=== PATIENT | female | born 1955 | race Caucasian/White ===

== ENCOUNTER 2020-12-05 09:21 | Inpatient (IN) | payer MEDICARE ==
[2020-12-05 17:50] VITALS: BMI 32.5
[2020-12-05] MEDS ORDERED: Acetaminophen 325 MG TAB PO PRN (17:51)
[2020-12-05] MEDS ORDERED: Acetaminophen 650 MG Suppository PR PRN (17:51)
[2020-12-05] MEDS: Sodium Chloride 0.9% 1,000 ML IV SCH (18:10)
[2020-12-05] MEDS ORDERED: Senokot 8.6 MG TAB PO PRN (19:12)
[2020-12-05] MEDS ORDERED: Potassium Chloride 20 MEQ TAB PO SCH (19:15)
[2020-12-05 20:27] LABS: Lactic Acid 1.5 mmol/L (0.5-2.2)
[2020-12-05] MEDS: Famotidine/PF 20 mg/2ml Vial SLOW IVP SCH (20:30)
[2020-12-05 20:31] LABS: Albumin 3.4 g/dL (3.4-4.8); Anion Gap 18 mmol/L (10-20); BUN (Urea Nitrogen) 41 mg/dL (9.8-20.1); BUN/Creatinine Ratio 36.61; Bilirubin, Direct 1.2 mg/dL (0.1-0.3); Calc. Creatinine Clearance 65 mL/min (70-130); Calcium 8.7 mg/dL (7.8-10.44); Carbon Dioxide 20 mmol/L (23-31); Chloride 93 mmol/L (98-107); Glucose 68 mg/dL (80-115); Lipase 8 U/L (8-78); Magnesium 1.6 mg/dL (1.6-2.6); Potassium 3.4 mmol/L (3.5-5.1); Sodium 128 mmol/L (136-145)
[2020-12-06 06:11] LABS: Hemoglobin 10.8 g/dL (12.0-16.0); Mean Corpuscular Hemoglobin 30.4 pg (27.0-31.0); Mean Corpuscular Volume 89.5 fL (78.0-98.0); Platelet Count 131 thou/uL (130-400); RBC Distribution Width 11.8 % (11.5-14.5); Red Blood Cell (RBC) Count 3.55 mill/uL (4.20-5.40); White Blood Cell (WBC) Count 8.6 thou/uL (4.8-10.8)
[2020-12-06 06:25] LABS: ALT (SGPT) 225 U/L (8-55); AST (SGOT) 39 U/L (5-34); Alkaline Phosphatase 179 U/L (40-110); Anion Gap 20 mmol/L (10-20); BUN (Urea Nitrogen) 40 mg/dL (9.8-20.1); Calc. Creatinine Clearance 48 mL/min (70-130); Calcium 8.4 mg/dL (7.8-10.44); Carbon Dioxide 16 mmol/L (23-31); Chloride 96 mmol/L (98-107); Globulin 2.7 g/dL (2.4-3.5); Glucose 69 mg/dL (80-115); Lipase 6 U/L (8-78); Magnesium 1.9 mg/dL (1.6-2.6); Potassium 3.6 mmol/L (3.5-5.1); Protein, Total 5.7 g/dL (5.8-8.1); Sodium 128 mmol/L (136-145)
[2020-12-06 06:54] LABS: Band 26 % (5-11); Lymphocytes 1 % (21-51); MDiff Complete? YES; Monocytes 6 % (0-10); Myelocyte 1 % (0-0); Neutrophil 66 % (42-75); Platelet Morphology Comment Appears Adequate
[2020-12-06] MEDS: Famotidine/PF 20 mg/2ml Vial SLOW IVP SCH (08:44)
[2020-12-06] MEDS: cefTRIAXone\\ROCEPHIN 1 GM in Sodium Chloride 0.9% 100 ML IVPB SCH (08:44)
[2020-12-06] MEDS: Sodium Chloride 0.9% 1,000 ML IV SCH (09:11)
[2020-12-06] MEDS ORDERED: Ondansetron PF 4 MG/2 ML Vial ONE (10:11)
[2020-12-06] MEDS ORDERED: Dexamethasone 20 MG/5 ML VIAL ONE (10:11)
[2020-12-06] MEDS ORDERED: Lidocaine 1% PF 5 ML VIAL ONE (10:11)
[2020-12-06] MEDS ORDERED: PROPOFOL 200 MG/20 ML VIAL ONE (10:11)
[2020-12-06] MEDS ORDERED: Levofloxacin 500 mg/D5W 100 ml Premix Bag ONE (13:31)
[2020-12-06] MEDS ORDERED: Iothalamate Meglumine 60% 50 ML VIAL FS ONE (13:41)
[2020-12-06] MEDS ORDERED: Fentanyl 100 MCG/2 ML VIAL ONE ×2 (13:46→15:01)
[2020-12-06] MEDS ORDERED: Ondansetron HCl/PF 4 MG/2 ML Vial IVP PRN (15:00)
[2020-12-06] MEDS ORDERED: Tamsulosin HCl 0.4 MG CAP ONE (15:11)
[2020-12-06] MEDS ORDERED: Oxybutynin 5 MG TAB ONE (15:11)
[2020-12-06] MEDS: Oxybutynin 5 MG TAB PO SCH (16:28)
[2020-12-06] MEDS: Tamsulosin HCl 0.4 MG CAP PO SCH (16:28)
[2020-12-06] MEDS: Phenazopyridine HCl 100 MG TAB PO SCH (18:08)
[2020-12-06] MEDS: Gabapentin 100 MG CAP PO SCH (20:57)
[2020-12-06] MEDS: Atorvastatin Calcium 20 MG TAB PO SCH (20:58)
[2020-12-06] MEDS: Metoprolol Tartrate 50 MG TAB PO SCH (20:59)
[2020-12-07] MEDS ORDERED: hydrALAZINE 20 MG/ML VIAL SLOW IVP PRN (01:13)
[2020-12-07] MEDS: hydrALAZINE 20 MG/ML VIAL SLOW IVP PRN ×3 (02:19→18:38)
[2020-12-07] MEDS: Sodium Chloride 0.9% 1,000 ML IV SCH ×2 (02:25→16:31)
[2020-12-07] MEDS: cefTRIAXone\\ROCEPHIN 1 GM in Sodium Chloride 0.9% 100 ML IVPB SCH (09:58)
[2020-12-07] MEDS: Phenazopyridine HCl 100 MG TAB PO SCH ×3 (09:59→17:29)
[2020-12-07] MEDS: Metoprolol Tartrate 50 MG TAB PO SCH ×2 (10:00→20:48)
[2020-12-07] MEDS: OXcarbazepine 300 MG TAB PO SCH (10:00)
[2020-12-07] MEDS: Cholecalciferol 1,000 UNITS (25 MCG) TAB PO SCH (10:00)
[2020-12-07] MEDS: Gabapentin 100 MG CAP PO SCH ×2 (10:02→20:48)
[2020-12-07] MEDS: Famotidine/PF 20 mg/2ml Vial SLOW IVP SCH (10:03)
[2020-12-07] MEDS: Amlodipine 5 MG TAB PO SCH (10:03)
[2020-12-07 10:19] LABS: Anion Gap 18 mmol/L (10-20); BUN (Urea Nitrogen) 29 mg/dL (9.8-20.1); Calc. Creatinine Clearance 72 mL/min (70-130); Calcium 8.7 mg/dL (7.8-10.44); Carbon Dioxide 18 mmol/L (23-31); Chloride 100 mmol/L (98-107); Glucose 95 mg/dL (80-115); Potassium 4.2 mmol/L (3.5-5.1); Sodium 132 mmol/L (136-145)
[2020-12-07 12:23] LABS: Band 10 % (5-11); Lymphocytes 4 % (21-51); MDiff Complete? YES; Mean Corpuscular HGB CONC 34.1 g/dL (32.0-36.0); Mean Corpuscular Hemoglobin 30.5 pg (27.0-31.0); Mean Corpuscular Volume 89.3 fL (78.0-98.0); Mean Platelet Volume 7.4 fL (7.4-10.4); Monocytes 6 % (0-10); Neutrophil 80 % (42-75); Platelet Count 163 thou/uL (130-400); Platelet Morphology Comment Appears Adequate; RBC Morphology Normal; Red Blood Cell (RBC) Count 3.93 mill/uL (4.20-5.40); Vacuoles SLIGHT
[2020-12-07] MEDS: Oxybutynin 5 MG TAB PO SCH (16:27)
[2020-12-07] MEDS: Tamsulosin HCl 0.4 MG CAP PO SCH (16:27)
[2020-12-07] MEDS: Atorvastatin Calcium 20 MG TAB PO SCH (20:48)
[2020-12-08] MEDS: Metoprolol Tartrate 50 MG TAB PO SCH (08:25)
[2020-12-08] MEDS: Amlodipine 5 MG TAB PO SCH (08:25)
[2020-12-08] MEDS: cefTRIAXone\\ROCEPHIN 1 GM in Sodium Chloride 0.9% 100 ML IVPB SCH (08:25)
[2020-12-08] MEDS: OXcarbazepine 300 MG TAB PO SCH (08:25)
[2020-12-08] MEDS: Cholecalciferol 1,000 UNITS (25 MCG) TAB PO SCH (08:26)
[2020-12-08] MEDS: Famotidine/PF 20 mg/2ml Vial SLOW IVP SCH (08:26)
[2020-12-08] MEDS: Gabapentin 100 MG CAP PO SCH (08:26)
[2020-12-08] MEDS: Sodium Chloride 0.9% 1,000 ML IV SCH (08:29)
[2020-12-08] MEDS: Phenazopyridine HCl 100 MG TAB PO SCH ×2 (08:34→13:06)
[2020-12-08 10:09] LABS: Band 3 % (5-11); Hemoglobin 11.5 g/dL (12.0-16.0); Lymphocytes 9 % (21-51); MDiff Complete? YES; Mean Corpuscular HGB CONC 33.9 g/dL (32.0-36.0); Mean Corpuscular Hemoglobin 30.5 pg (27.0-31.0); Mean Corpuscular Volume 90.1 fL (78.0-98.0); Mean Platelet Volume 7.5 fL (7.4-10.4); Metamyelocyte 1 % (0-0); Monocytes 9 % (0-10); Myelocyte 1 % (0-0); Neutrophil 77 % (42-75); Platelet Count 183 thou/uL (130-400); Platelet Morphology Comment Appears Adequate; RBC Distribution Width 11.9 % (11.5-14.5); RBC Morphology Normal; Red Blood Cell (RBC) Count 3.78 mill/uL (4.20-5.40); White Blood Cell (WBC) Count 8.8 thou/uL (4.8-10.8)
[2020-12-08 14:23] VITALS: BP 161/90; TEMP 97.6
== END 2020-12-08 15:23 | disposition home or self-care (01) | DRG 660 ==
LOC: SURG A 09:21 → T4-B 12-06 15:47
PROVIDERS: ADMIT Internal Medicine; ATTEND Internal Medicine
PROC: 0T768DZ Dilation of Right Ureter with Intraluminal Device, Via Natural or Artificial Opening Endoscopic (ICD-10-PCS; principal; 2020-12-06)
PROC: BT1D1ZZ Fluoroscopy of Right Kidney, Ureter and Bladder using Low Osmolar Contrast (ICD-10-PCS; 2020-12-06)
DX: N13.6 Pyonephrosis (principal); E87.1 Hypo-osmolality and hyponatremia; G90.50 Complex regional pain syndrome I, unspecified; N17.9 Acute kidney failure, unspecified; I10 Essential (primary) hypertension; R79.89 Other specified abnormal findings of blood chemistry; F31.9 Bipolar disorder, unspecified; B96.20 Unspecified Escherichia coli [E. coli] as the cause of diseases classified elsewhere; N20.0 Calculus of kidney; K59.00 Constipation, unspecified; R19.00 Intra-abdominal and pelvic swelling, mass and lump, unspecified site; E78.5 Hyperlipidemia, unspecified; Z88.6 Allergy status to analgesic agent
CPT/HCPCS: 36415; 74176; 74420; 76705; 80048; 80053; 80074; 80143; 81003; 81015; 82248; 82436; 82550; 83605; 83690; 83735; 83930; 83935; 84133; 84145; 84300; 84443; 84484; 85025; 87040; 87077; 87086; 87186; 87635; 88112; 93005; 93010; 93306; 93970; 80307; J0360; J0696; J1100; J1650; J1956; J2405; J2704; J3010; J3490; S0028; U0003; U0005

== ENCOUNTER 2020-12-22 11:06 | Outpatient (CLI) | payer MEDICARE ==
[2020-12-22 14:32] LABS: Hemoglobin 11.3 g/dL (12.0-15.5); Mean Corpuscular HGB CONC 32.9 g/dL (32.0-36.0); Mean Corpuscular Hemoglobin 29.4 pg (27.0-33.0); Mean Corpuscular Volume 89.1 fl (81.6-98.3); Mean Platelet Volume 12.5 fl (7.4-10.4); Platelet Count 186 10x3/uL (150-450); RBC Distribution Width 13.3 % (11.5-14.5); Red Blood Cell (RBC) Count 3.85 10x6/uL (3.90-5.03); White Blood Cell (WBC) Count 4.4 10x3/uL (3.5-10.5)
[2020-12-22 14:34] LABS: Anion Gap 11 mmol/L (10-20); BUN (Urea Nitrogen) 9 mg/dL (9.8-20.1); Calc. Creatinine Clearance 0 mL/min (70-130); Calcium 8.8 mg/dL (7.8-10.44); Carbon Dioxide 31 mmol/L (23-31); Chloride 94 mmol/L (98-107); Glucose 72 mg/dL (80-115); Potassium 4.4 mmol/L (3.5-5.1); Sodium 132 mmol/L (136-145)
[2020-12-22 14:43] LABS: Bilirubin Neg (Negative); Blood, Urine 250 (Negative); Clarity Clear (Clear); Glucose, Urine (Dipstick) Normal (Negative); Ketone, Urine Negative (Negative); Leukocyte 500 (Negative); Nitrite Negative (Negative); Protein, Urine (Dipstick) 100 mg/dl (Neg-Trace); Urobilinogen Normal mg/dL (Less than 2)
[2020-12-22 15:13] LABS: Bacteria/HPF Rare-Few HPF (None Seen); RBC/HPF 0-3 HPF (0-3); Squamous Epithelial 0-3 HPF (0-3); WBC/HPF 0-3 HPF (0-3)
[2020-12-23 04:28] LABS: SARS-CoV-2 PCR by NAA Not Detected (NotDetected)
== END 2020-12-22 11:07 | disposition home or self-care (01) ==
LOC: LABBT 11:06
PROVIDERS: ATTEND Urology
DX: Z01.818 Encounter for other preprocedural examination (principal); N13.5 Crossing vessel and stricture of ureter without hydronephrosis; Z20.822 Contact with and (suspected) exposure to COVID-19
CPT/HCPCS: 80048; 81001; 85027; 87086; 93005; U0003; U0005; 87635; 93010

== ENCOUNTER 2020-12-27 07:51 | Day surgery (SDC) | payer MEDICARE ==
[2020-12-26 11:40] VITALS: BMI 31.8
[2020-12-27] MEDS ORDERED: Levofloxacin 500 mg/D5W 100 ml Premix Bag ONE (08:40)
[2020-12-27] MEDS ORDERED: Iothalamate Meglumine 60% 50 ML VIAL FS ONE (10:12)
[2020-12-27] MEDS ORDERED: Fentanyl 100 MCG/2 ML VIAL ONE (10:16)
[2020-12-27] MEDS ORDERED: Ondansetron PF 4 MG/2 ML Vial ONE (10:35)
[2020-12-27] MEDS ORDERED: PROPOFOL 200 MG/20 ML VIAL ONE (10:35)
[2020-12-27] MEDS ORDERED: Phenazopyridine HCl 100 MG TAB ONE (11:33)
[2020-12-27] MEDS ORDERED: Oxybutynin 5 MG TAB ONE (11:34)
[2020-12-27] MEDS ORDERED: HYDROcodone/Acetaminophen 5/325 mg Tablet ONE ×2 (11:57→13:44)
[2021-01-02 18:13] LABS: CA Oxalate Dihydrate 70 % (.); CA Oxalate Monohydrate 30 % (.); Color White (.); Stone Weight 42 mg (.)
== END 2020-12-27 14:52 | disposition home or self-care (01) ==
LOC: SDC 07:51
PROVIDERS: ATTEND Urology
PROC: 0TC38ZZ Extirpation of Matter from Right Kidney Pelvis, Via Natural or Artificial Opening Endoscopic (ICD-10-PCS; principal; 2020-12-27)
PROC: 0T768DZ Dilation of Right Ureter with Intraluminal Device, Via Natural or Artificial Opening Endoscopic (ICD-10-PCS; 2020-12-27)
DX: N13.5 Crossing vessel and stricture of ureter without hydronephrosis (principal); N20.0 Calculus of kidney; Z79.899 Other long term (current) drug therapy; Z88.5 Allergy status to narcotic agent; Z91.040 Latex allergy status
CPT/HCPCS: 74420; 82365; 88300; J1956; J2405; J2704; J3010; Q9961

== ENCOUNTER 2021-05-12 21:53 | Inpatient (IN) | payer MEDICARE ==
[2021-05-13 00:02] LABS: #Eosinphils 0.1 thou/uL (0.0-0.7); #Monocytes 0.5 thou/uL (0.11-0.59); #Neutrophils 3.7 thou/uL (1.40-6.50); %Basophils 0.9 % (0.0-1.0); %Eosinophils 1.1 % (0.0-10.0); %Lymphocytes 19.8 % (21.0-51.0); %Monocytes 8.8 % (0.0-10.0); %Neutrophils 69.4 % (42.0-75.0); Hemoglobin 11.7 g/dL (12.0-16.0); Mean Corpuscular HGB CONC 35.6 g/dL (32.0-36.0); Mean Corpuscular Hemoglobin 31.3 pg (27.0-31.0); Mean Corpuscular Volume 87.9 fL (78.0-98.0); Mean Platelet Volume 6.9 fL (7.4-10.4); Platelet Count 230 thou/uL (130-400); RBC Distribution Width 11.7 % (11.5-14.5); Red Blood Cell (RBC) Count 3.73 mill/uL (4.20-5.40); White Blood Cell (WBC) Count 5.3 thou/uL (4.8-10.8)
[2021-05-13 00:16] LABS: Bilirubin Negative (Negative); Blood, Urine Small (Negative); Glucose, Urine (Dipstick) Negative (Negative); Ketone, Urine 40 mg/dL (Negative); Leukocyte Small (Negative); Nitrite Negative (Negative); Protein, Urine (Dipstick) 100 mg/dL (Neg-Trace); Specific Gravity, Urine 1.015 (1.005-1.030)
[2021-05-13 00:22] LABS: Clarity Clear (Clear)
[2021-05-13 00:36] LABS: Other Microscopic Description Less than 2 mL rec'd; RBC/HPF 0-3 HPF (0-3); WBC/HPF 0-3 HPF (0-3)
[2021-05-13 00:49] LABS: SARS-CoV-2 NAA Rapid Test Not Detected (NotDetected)
[2021-05-13 01:03] LABS: ALT (SGPT) 12 U/L (8-55); AST (SGOT) 19 U/L (5-34); Albumin 3.8 g/dL (3.4-4.8); Alkaline Phosphatase 149 U/L (40-110); Anion Gap 11 mmol/L (10-20); BUN (Urea Nitrogen) 10 mg/dL (9.8-20.1); Bilirubin, Total 0.6 mg/dL (0.2-1.2); Calc. Creatinine Clearance 0 mL/min (70-130); Calcium 9.1 mg/dL (7.8-10.44); Carbon Dioxide 28 mmol/L (23-31); Chloride 98 mmol/L (98-107); Globulin 2.7 g/dL (2.4-3.5); Glucose 78 mg/dL (80-115); Potassium 3.3 mmol/L (3.5-5.1); Protein, Total 6.5 g/dL (5.8-8.1); Sodium 134 mmol/L (136-145)
[2021-05-13] MEDS ORDERED: Morphine 2 MG/ML VIAL ONE (01:43)
[2021-05-13] MEDS ORDERED: Melatonin 3 MG TAB PO SCH (02:00)
[2021-05-13] MEDS ORDERED: Amitriptyline HCl 100 MG TAB PO SCH (02:00)
[2021-05-13] MEDS ORDERED: Acetaminophen 325 MG TAB PO PRN ×2 (03:45→04:53)
[2021-05-13] MEDS ORDERED: Sodium Chloride 0.9% 1,000 ML IV SCH (03:45)
[2021-05-13] MEDS ORDERED: Ondansetron PF 4 MG/2 ML Vial IVP PRN ×2 (03:45→04:53)
[2021-05-13] MEDS ORDERED: Ondansetron ODT 4 MG TAB SL PRN (03:45)
[2021-05-13 04:15] VITALS: BMI 28.2
[2021-05-13] MEDS ORDERED: Senokot S 8.6-50 MG TAB PO PRN (04:53)
[2021-05-13] MEDS ORDERED: Potassium Chloride 20 MEQ TAB PO SCH ×2 (05:00→13:45)
[2021-05-13] MEDS: Morphine 4 MG/ML VIAL SLOW IVP PRN ×2 (05:20→18:00)
[2021-05-13] MEDS: traMADol HCl 50 MG TAB PO PRN ×3 (05:55→21:27)
[2021-05-13 06:33] LABS: #Basophils 0.1 thou/uL (0.0-0.2); #Eosinphils 0.1 thou/uL (0.0-0.7); #Lymphocytes 1.1 thou/uL (1.20-3.40); #Monocytes 0.6 thou/uL (0.11-0.59); #Neutrophils 4.9 thou/uL (1.40-6.50); %Eosinophils 1.1 % (0.0-10.0); %Lymphocytes 15.9 % (21.0-51.0); %Monocytes 9.6 % (0.0-10.0); %Neutrophils 72.3 % (42.0-75.0); Hemoglobin 12.6 g/dL (12.0-16.0); Mean Corpuscular HGB CONC 35.4 g/dL (32.0-36.0); Mean Corpuscular Hemoglobin 31.4 pg (27.0-31.0); Mean Corpuscular Volume 88.6 fL (78.0-98.0); Mean Platelet Volume 7.1 fL (7.4-10.4); Platelet Count 263 thou/uL (130-400); RBC Distribution Width 11.8 % (11.5-14.5); Red Blood Cell (RBC) Count 4.02 mill/uL (4.20-5.40); White Blood Cell (WBC) Count 6.7 thou/uL (4.8-10.8)
[2021-05-13 06:56] LABS: Anion Gap 12 mmol/L (10-20); BUN (Urea Nitrogen) 10 mg/dL (9.8-20.1); Calc. Creatinine Clearance 91 mL/min (70-130); Calcium 9.5 mg/dL (7.8-10.44); Carbon Dioxide 28 mmol/L (23-31); Chloride 98 mmol/L (98-107); Glucose 73 mg/dL (80-115); Magnesium 1.8 mg/dL (1.6-2.6); Potassium 3.2 mmol/L (3.5-5.1); Sodium 135 mmol/L (136-145)
[2021-05-13] MEDS ORDERED: hydrALAZINE 20 MG/ML VIAL SLOW IVP PRN (07:02)
[2021-05-13] MEDS: Metoprolol Tartrate 50 MG TAB PO SCH ×2 (08:23→21:20)
[2021-05-13] MEDS: Atorvastatin Calcium 20 MG TAB PO SCH (08:23)
[2021-05-13] MEDS: Amlodipine 5 MG TAB PO SCH (08:23)
[2021-05-13 11:44] LABS: Prothrombin Time 13.6 sec (12.0-14.7)
[2021-05-13 11:45] LABS: PTT 38.7 sec (22.9-36.1)
[2021-05-13] MEDS: OXcarbazepine 300 MG TAB PO SCH ×2 (14:50→21:26)
[2021-05-13] MEDS ORDERED: OXcarbazepine 600 MG TAB PO SCH (15:00)
[2021-05-13] MEDS: Amitriptyline HCl 100 MG TAB PO SCH (21:20)
[2021-05-14 05:38] LABS: #Basophils 0.1 thou/uL (0.0-0.2); #Eosinphils 0.1 thou/uL (0.0-0.7); #Lymphocytes 1.6 thou/uL (1.20-3.40); #Monocytes 0.7 thou/uL (0.11-0.59); #Neutrophils 4.9 thou/uL (1.40-6.50); %Basophils 0.9 % (0.0-1.0); %Eosinophils 1.9 % (0.0-10.0); %Lymphocytes 21.7 % (21.0-51.0); %Monocytes 8.9 % (0.0-10.0); %Neutrophils 66.6 % (42.0-75.0); Hemoglobin 11.9 g/dL (12.0-16.0); Mean Corpuscular HGB CONC 34.7 g/dL (32.0-36.0); Mean Corpuscular Hemoglobin 30.9 pg (27.0-31.0); Mean Platelet Volume 6.9 fL (7.4-10.4); Platelet Count 271 thou/uL (130-400); RBC Distribution Width 11.7 % (11.5-14.5); Red Blood Cell (RBC) Count 3.85 mill/uL (4.20-5.40); White Blood Cell (WBC) Count 7.3 thou/uL (4.8-10.8)
[2021-05-14 06:02] LABS: Anion Gap 12 mmol/L (10-20); BUN (Urea Nitrogen) 13 mg/dL (9.8-20.1); Calc. Creatinine Clearance 90 mL/min (70-130); Calcium 9.3 mg/dL (7.8-10.44); Carbon Dioxide 24 mmol/L (23-31); Chloride 98 mmol/L (98-107); Glucose 79 mg/dL (80-115); Magnesium 1.8 mg/dL (1.6-2.6); Sodium 130 mmol/L (136-145)
[2021-05-14] MEDS: Morphine 4 MG/ML VIAL SLOW IVP PRN (06:25)
[2021-05-14] MEDS: Metoprolol Tartrate 50 MG TAB PO SCH ×2 (08:00→19:58)
[2021-05-14] MEDS: Atorvastatin Calcium 20 MG TAB PO SCH (08:05)
[2021-05-14] MEDS: OXcarbazepine 300 MG TAB PO SCH ×3 (08:05→21:21)
[2021-05-14] MEDS: Amlodipine 5 MG TAB PO SCH (08:05)
[2021-05-14] MEDS: Cholecalciferol 1,000 UNITS (25 MCG) TAB PO SCH (08:05)
[2021-05-14] MEDS ORDERED: Fentanyl 250 MCG/5 ML VIAL ONE (10:33)
[2021-05-14] MEDS ORDERED: Albumin 5% 500 ML ONE (10:33)
[2021-05-14] MEDS ORDERED: Ketamine 50 MG/ML (10ML VIAL) ONE (10:43)
[2021-05-14] MEDS ORDERED: Dexmedetomidine 200 MCG/2 ML VIAL ONE (10:43)
[2021-05-14] MEDS ORDERED: Bacitracin Zinc Ointment 30 gm TUBE ONE (10:44)
[2021-05-14] MEDS ORDERED: Thrombin 5000 UNITS/5 ML VIAL ONE (10:44)
[2021-05-14] MEDS ORDERED: PHENYLEPHRINE-NS 100 MCG/ML 10 ML SYRINGE ONE (10:50)
[2021-05-14] MEDS ORDERED: Lidocaine 1% PF 5 ML VIAL ONE (10:50)
[2021-05-14] MEDS ORDERED: Glycopyrrolate 0.2 MG/ML 5 ML SYRINGE ONE (10:50)
[2021-05-14] MEDS ORDERED: Vecuronium 10 MG VIAL ONE (10:50)
[2021-05-14] MEDS ORDERED: PROPOFOL 200 MG/20 ML VIAL ONE (10:50)
[2021-05-14] MEDS ORDERED: Ondansetron PF 4 MG/2 ML Vial ONE (10:50)
[2021-05-14] MEDS ORDERED: Dexamethasone 20 MG/5 ML VIAL ONE (10:50)
[2021-05-14] MEDS ORDERED: Rocuronium Bromide 10 MG/ML (10ML VIAL) ONE (10:50)
[2021-05-14] MEDS ORDERED: ePHEDrine 50 MG/ML VIAL ONE (10:50)
[2021-05-14] MEDS ORDERED: Fentanyl 100 MCG/2 ML VIAL ONE ×2 (16:23→16:52)
[2021-05-14] MEDS ORDERED: HYDROmorphone 0.5 MG/0.5 ML SYRINGE ONE (17:26)
[2021-05-14] MEDS: CEFAZOLIN 2 GM in Premix Bag 1 BAG IVPB SCH (18:08)
[2021-05-14] MEDS: Morphine 2 MG/ML VIAL SLOW IVP PRN ×2 (18:13→22:43)
[2021-05-14] MEDS: Amitriptyline HCl 100 MG TAB PO SCH (19:58)
[2021-05-14] MEDS: HYDROcodone/Acetaminophen 7.5/325 mg Tablet PO PRN (21:27)
[2021-05-15] MEDS: CEFAZOLIN 2 GM in Premix Bag 1 BAG IVPB SCH ×3 (01:42→17:31)
[2021-05-15] MEDS: Morphine 2 MG/ML VIAL SLOW IVP PRN (05:28)
[2021-05-15 05:29] LABS: #Lymphocytes 1.2 thou/uL (1.20-3.40); #Monocytes 1.5 thou/uL (0.11-0.59); #Neutrophils 7.7 thou/uL (1.40-6.50); %Basophils 0.1 % (0.0-1.0); %Eosinophils 0.1 % (0.0-10.0); %Lymphocytes 11.4 % (21.0-51.0); %Monocytes 14.6 % (0.0-10.0); %Neutrophils 73.8 % (42.0-75.0); Mean Corpuscular HGB CONC 35.9 g/dL (32.0-36.0); Mean Corpuscular Hemoglobin 31.8 pg (27.0-31.0); Mean Corpuscular Volume 88.8 fL (78.0-98.0); Platelet Count 283 thou/uL (130-400); RBC Distribution Width 11.8 % (11.5-14.5); Red Blood Cell (RBC) Count 3.46 mill/uL (4.20-5.40); White Blood Cell (WBC) Count 10.5 thou/uL (4.8-10.8)
[2021-05-15 05:59] LABS: Anion Gap 12 mmol/L (10-20); BUN (Urea Nitrogen) 16 mg/dL (9.8-20.1); Calc. Creatinine Clearance 77 mL/min (70-130); Calcium 8.5 mg/dL (7.8-10.44); Carbon Dioxide 26 mmol/L (23-31); Chloride 96 mmol/L (98-107); Glucose 116 mg/dL (80-115); Magnesium 1.6 mg/dL (1.6-2.6); Sodium 130 mmol/L (136-145)
[2021-05-15] MEDS ORDERED: Diazepam 5 MG TAB PO PRN (06:58)
[2021-05-15] MEDS ORDERED: Magnesium 2 GM/50 ML 2 GM in Premix Bag 1 BAG IVPB SCH (07:30)
[2021-05-15] MEDS ORDERED: Diazepam 5 MG TAB PO SCH (08:30)
[2021-05-15] MEDS ORDERED: Ketorolac Tromethamine 30 MG/ML VIAL IVP SCH ×2 (09:15→16:00)
[2021-05-15] MEDS: Metoprolol Tartrate 50 MG TAB PO SCH (09:32)
[2021-05-15] MEDS: OXcarbazepine 300 MG TAB PO SCH ×2 (09:33→14:28)
[2021-05-15] MEDS: Cholecalciferol 1,000 UNITS (25 MCG) TAB PO SCH (09:33)
[2021-05-15] MEDS: Atorvastatin Calcium 20 MG TAB PO SCH (09:34)
[2021-05-15] MEDS: Amlodipine 5 MG TAB PO SCH (09:34)
[2021-05-15 14:23] LABS: EliA RAS New Method **** NEW METHOD ****; Rheumatoid Factor IgM Antibody 2.4 IU/mL (<3.5 Negative)
[2021-05-15] MEDS: HYDROcodone/Acetaminophen 7.5/325 mg Tablet PO PRN (14:27)
[2021-05-15 15:24] VITALS: BP 121/63; TEMP 99.3
[2021-05-18 13:12] LABS: EliA RAS New Method **** NEW METHOD ****; Rheumatoid Factor IgA Antibody 3.5 IU/mL (<14 Negative)
== END 2021-05-15 19:15 | DRG 453 ==
LOC: ERS 21:53 → SJJU 05-13 01:05 → OBSVTOIN 05-15 11:19
PROVIDERS: ADMIT Internal Medicine; ATTEND Family Medicine
PROC: 0RG20A0 Fusion of 2 or more Cervical Vertebral Joints with Interbody Fusion Device, Anterior Approach, Anterior Column, Open Approach (ICD-10-PCS; principal; 2021-05-14)
PROC: 0RG2071 Fusion of 2 or more Cervical Vertebral Joints with Autologous Tissue Substitute, Posterior Approach, Posterior Column, Open Approach (ICD-10-PCS; 2021-05-14)
PROC: 0RB30ZZ Excision of Cervical Vertebral Disc, Open Approach (ICD-10-PCS; 2021-05-14)
PROC: 01N10ZZ Release Cervical Nerve, Open Approach (ICD-10-PCS; 2021-05-14)
PROC: 00NW0ZZ Release Cervical Spinal Cord, Open Approach (ICD-10-PCS; 2021-05-14)
DX: M48.02 Spinal stenosis, cervical region (principal); Z20.822 Contact with and (suspected) exposure to COVID-19; G95.19 Other vascular myelopathies; G90.50 Complex regional pain syndrome I, unspecified; E87.1 Hypo-osmolality and hyponatremia; M47.12 Other spondylosis with myelopathy, cervical region; M47.22 Other spondylosis with radiculopathy, cervical region; I10 Essential (primary) hypertension; E78.5 Hyperlipidemia, unspecified; E87.6 Hypokalemia; M06.9 Rheumatoid arthritis, unspecified; Z88.5 Allergy status to narcotic agent; Z91.040 Latex allergy status; Z79.899 Other long term (current) drug therapy; Z98.890 Other specified postprocedural states; Z83.3 Family history of diabetes mellitus; Z95.828 Presence of other vascular implants and grafts; Z87.891 Personal history of nicotine dependence
CPT/HCPCS: 0240U; 36415; 71045; 72125; 76000; 80048; 81003; 81015; 83520; 83735; 84134; 85025; 85610; 85730; 93005; 93970; 96374; 96375; 96376; C1713; C1768; C1776; G0378; J0690; J1100; J1170; J1885; J2270; J2405; J2704; J3010; J3370; J3475; J3490; P9045

== ENCOUNTER 2021-05-20 17:37 | Inpatient (IN) | payer MEDICARE ==
[2021-05-20 18:52] LABS: ALT (SGPT) 115 U/L (8-55); AST (SGOT) 23 U/L (5-34); Albumin 3.9 g/dL (3.4-4.8); Alkaline Phosphatase 237 U/L (40-110); Anion Gap 15 mmol/L (10-20); BUN (Urea Nitrogen) 9 mg/dL (9.8-20.1); Bilirubin, Total 0.7 mg/dL (0.2-1.2); Calc. Creatinine Clearance 0 mL/min (70-130); Calcium 9.4 mg/dL (7.8-10.44); Carbon Dioxide 24 mmol/L (23-31); Chloride 88 mmol/L (98-107); Globulin 3.3 g/dL (2.4-3.5); Glucose 96 mg/dL (80-115); Potassium 3.5 mmol/L (3.5-5.1); Protein, Total 7.2 g/dL (5.8-8.1); Sodium 123 mmol/L (136-145)
[2021-05-20 18:55] LABS: #Eosinphils 0.1 thou/uL (0.0-0.7); #Monocytes 0.8 thou/uL (0.11-0.59); #Neutrophils 7.2 thou/uL (1.40-6.50); %Basophils 0.3 % (0.0-1.0); %Eosinophils 1.6 % (0.0-10.0); %Lymphocytes 10.3 % (21.0-51.0); %Monocytes 9.2 % (0.0-10.0); %Neutrophils 78.7 % (42.0-75.0); Hemoglobin 13.2 g/dL (12.0-16.0); Mean Corpuscular HGB CONC 36.7 g/dL (32.0-36.0); Mean Corpuscular Volume 87.4 fL (78.0-98.0); Mean Platelet Volume 6.9 fL (7.4-10.4); Platelet Count 313 thou/uL (130-400); Red Blood Cell (RBC) Count 4.12 mill/uL (4.20-5.40); White Blood Cell (WBC) Count 9.2 thou/uL (4.8-10.8)
[2021-05-20 19:25] LABS: Bacteria/HPF 4+ HPF (None Seen); Bilirubin Negative (Negative); Clarity Turbid (Clear); Glucose, Urine (Dipstick) Normal (Negative); Ketone, Urine 100 mg/dL (Negative); Leukocyte 500 Leu/uL (Negative); Nitrite 2+ (Negative); Protein, Urine (Dipstick) 30 mg/dL (Neg-Trace); Specific Gravity, Urine 1.019 (1.002-1.036); Squamous Epithelial None Seen HPF (0-3); Urobilinogen Normal mg/dL (Less than 2); WBC/HPF Greater than 50 HPF (0-3)
[2021-05-20 19:27] LABS: Blood, Urine 1+ (Negative)
[2021-05-20] MEDS ORDERED: cefTRIAXone\\ROCEPHIN 1 GM VIAL ONE (19:41)
[2021-05-20] MEDS ORDERED: Vancomycin 1 GM/200 ML BAG ONE (20:36)
[2021-05-20] MEDS ORDERED: Acetaminophen 325 MG TAB PO PRN (21:50)
[2021-05-20] MEDS ORDERED: Senokot S 8.6-50 MG TAB PO PRN (21:50)
[2021-05-20] MEDS: Sodium Chloride 0.9% 1,000 ML IV SCH (22:40)
[2021-05-20] MEDS ORDERED: traMADol HCl 50 MG TAB PO PRN (23:39)
[2021-05-21] MEDS: Ondansetron PF 4 MG/2 ML Vial IVP PRN ×2 (02:07→17:28)
[2021-05-21 05:45] LABS: Anion Gap 14 mmol/L (10-20); BUN (Urea Nitrogen) 7 mg/dL (9.8-20.1); Calc. Creatinine Clearance 113 mL/min (70-130); Calcium 8.8 mg/dL (7.8-10.44); Carbon Dioxide 22 mmol/L (23-31); Chloride 93 mmol/L (98-107); Glucose 99 mg/dL (80-115); Sodium 126 mmol/L (136-145)
[2021-05-21 05:49] LABS: Band 3 % (5-11); Hemoglobin 11.5 g/dL (12.0-16.0); Lymphocytes 12 % (21-51); MDiff Complete? YES; Mean Corpuscular Hemoglobin 31.7 pg (27.0-31.0); Mean Corpuscular Volume 87.8 fL (78.0-98.0); Mean Platelet Volume 6.9 fL (7.4-10.4); Monocytes 5 % (0-10); Neutrophil 80 % (42-75); Platelet Count 271 thou/uL (130-400); Platelet Morphology Comment Appears Adequate; RBC Distribution Width 11.9 % (11.5-14.5); RBC Morphology Normal; Red Blood Cell (RBC) Count 3.64 mill/uL (4.20-5.40); White Blood Cell (WBC) Count 7.2 thou/uL (4.8-10.8)
[2021-05-21] MEDS ORDERED: COLLAGEN HYDR PO SCH (09:00)
[2021-05-21] MEDS ORDERED: [UNRECOGNIZED DRUG - OTHER] PO SCH (09:00)
[2021-05-21] MEDS ORDERED: ASCORBIC ACID PO SCH (09:00)
[2021-05-21] MEDS: Enoxaparin Sodium 40 MG/0.4 ML SYRINGE SC SCH (09:11)
[2021-05-21] MEDS: Amlodipine 5 MG TAB PO SCH (09:11)
[2021-05-21] MEDS: Famotidine 20 MG TAB PO SCH ×2 (09:11→20:04)
[2021-05-21] MEDS: Atorvastatin Calcium 20 MG TAB PO SCH (09:11)
[2021-05-21] MEDS: Metoprolol Tartrate 50 MG TAB PO SCH ×2 (09:11→20:04)
[2021-05-21] MEDS: OXcarbazepine 300 MG TAB PO SCH ×3 (09:12→20:59)
[2021-05-21] MEDS: Buprenorphine 8mg/Naloxone 2mg per 1 FILM SL SCH ×2 (09:12→20:57)
[2021-05-21] MEDS ORDERED: Potassium Chloride 20 MEQ TAB PO SCH (09:30)
[2021-05-21] MEDS: Sodium Chloride 0.9% 1,000 ML IV SCH (09:30)
[2021-05-21 19:15] LABS: SARS-CoV-2 PCR by NAA Not Detected (NotDetected)
[2021-05-21] MEDS: cefTRIAXone\\ROCEPHIN 1 GM in Sodium Chloride 0.9% 100 ML IVPB SCH (20:03)
[2021-05-21] MEDS: Amitriptyline HCl 100 MG TAB PO SCH (20:04)
[2021-05-21] MEDS ORDERED: Naloxone HCl 0.4 mg/ml Vial ONE ×2 (22:38→22:54)
[2021-05-21 23:00] LABS: Actual Bicarbonate (HCO3a) 24.4 mEq/L (22-28); Base Excess (BEa) -2.8 mEq/L (-2.0 to +3.0); CO2 Tension 53.3 mmHg (35.0-45.0); Carboxyhemoglobin (COHb) 0.4 gm% (0.0-3.0); Hemoglobin (Hb) 11.6 g/dL (12.0-16.0); O2 Tension (PaO2), arterial 384.3 mmHg (> 80.0); Potassium - ABG Lab 3.93 mmol/L (3.70-5.30); pH, Arterial 7.28 (7.35-7.45)
[2021-05-21 23:03] LABS: Puncture Site RRA
[2021-05-21 23:03] LABS: #Basophils 0.1 thou/uL (0.0-0.2); #Eosinphils 0.3 thou/uL (0.0-0.7); #Lymphocytes 1.2 thou/uL (1.20-3.40); #Neutrophils 6.3 thou/uL (1.40-6.50); %Basophils 0.7 % (0.0-1.0); %Eosinophils 2.9 % (0.0-10.0); %Lymphocytes 13.2 % (21.0-51.0); %Monocytes 11.1 % (0.0-10.0); Hemoglobin 10.9 g/dL (12.0-16.0); Mean Corpuscular HGB CONC 34.7 g/dL (32.0-36.0); Mean Corpuscular Volume 89.3 fL (78.0-98.0); Mean Platelet Volume 6.6 fL (7.4-10.4); Platelet Count 284 thou/uL (130-400); RBC Distribution Width 12.2 % (11.5-14.5); Red Blood Cell (RBC) Count 3.51 mill/uL (4.20-5.40); White Blood Cell (WBC) Count 8.8 thou/uL (4.8-10.8)
[2021-05-21 23:09] LABS: ALV-art Gradient 262.075 mmHg (0-20)
[2021-05-21 23:35] LABS: Lactic Acid 0.7 mmol/L (0.5-2.2)
[2021-05-21 23:41] LABS: ALT (SGPT) 66 U/L (8-55); AST (SGOT) 20 U/L (5-34); Albumin 3.2 g/dL (3.4-4.8); Alkaline Phosphatase 180 U/L (40-110); Anion Gap 10 mmol/L (10-20); BUN (Urea Nitrogen) 9 mg/dL (9.8-20.1); Bilirubin, Total 0.4 mg/dL (0.2-1.2); Calc. Creatinine Clearance 110 mL/min (70-130); Calcium 8.2 mg/dL (7.8-10.44); Carbon Dioxide 25 mmol/L (23-31); Chloride 97 mmol/L (98-107); Globulin 2.2 g/dL (2.4-3.5); Glucose 103 mg/dL (80-115); Protein, Total 5.4 g/dL (5.8-8.1); Sodium 128 mmol/L (136-145)
[2021-05-21 23:43] LABS: Troponin I 0.012 ng/mL (< 0.028)
[2021-05-22 01:22] LABS: Actual Bicarbonate (HCO3a) 24.2 mEq/L (22-28); Base Excess (BEa) -2.7 mEq/L (-2.0 to +3.0); Calcium, Ionized (arterial) 1.17 mmol/L (1.12-1.30); Carboxyhemoglobin (COHb) 0.1 gm% (0.0-3.0); Hemoglobin (Hb) 12.3 g/dL (12.0-16.0); O2 Tension (PaO2), arterial 111.7 mmHg (> 80.0); Potassium - ABG Lab 4.69 mmol/L (3.70-5.30)
[2021-05-22] MEDS ORDERED: Electrolyte Replacement Protocol 1 EACH IVPB ONE (02:02)
[2021-05-22] MEDS ORDERED: Norepinephrine 8 MG/0.9% NS 250 ML IVPB PRN (02:02)
[2021-05-22] MEDS ORDERED: Ventilator Sedation Protocol 1 EACH FS SCH (02:15)
[2021-05-22] MEDS ORDERED: Morphine 2 MG/ML VIAL SLOW IVP PRN (02:30)
[2021-05-22] MEDS ORDERED: Propofol BOLUS 1,000 MG/100 ML VIAL IV PRN (02:30)
[2021-05-22] MEDS ORDERED: DISCONTINUE PREVIOUS NARCOTIC PAIN MEDICATIONS AND BENZODIAZEPINES FS SCH (02:30)
[2021-05-22] MEDS ORDERED: Lorazepam 2 MG/ML VIAL SLOW IVP PRN (02:30)
[2021-05-22] MEDS ORDERED: Propofol 1,000 MG/100 ML VIAL IV PRN (02:30)
[2021-05-22] MEDS ORDERED: Fentanyl CADD 100 ML IV SCH (02:30)
[2021-05-22] MEDS ORDERED: Fentanyl BOLUS 250 ML IVPB PRN (02:30)
[2021-05-22] MEDS ORDERED: Electrolyte Replacement Protocol FS PRN (02:45)
[2021-05-22 02:51] LABS: Actual Bicarbonate (HCO3a) 23.9 mEq/L (22-28); Base Excess (BEa) -0.8 mEq/L (-2.0 to +3.0); CO2 Tension 39.6 mmHg (35.0-45.0); Calcium, Ionized (arterial) 1.13 mmol/L (1.12-1.30); Carboxyhemoglobin (COHb) 0.3 gm% (0.0-3.0); Hemoglobin (Hb) 11.5 g/dL (12.0-16.0); Potassium - ABG Lab 4.22 mmol/L (3.70-5.30)
[2021-05-22 02:57] LABS: O2 Tension (PaO2), arterial 512.8 mmHg (> 80.0)
[2021-05-22 02:58] LABS: Puncture Site LINE
[2021-05-22 03:45] LABS: #Eosinphils 0.1 thou/uL (0.0-0.7); #Lymphocytes 0.4 thou/uL (1.20-3.40); #Monocytes 0.6 thou/uL (0.11-0.59); %Basophils 0.5 % (0.0-1.0); %Eosinophils 0.7 % (0.0-10.0); %Lymphocytes 4.1 % (21.0-51.0); %Monocytes 6.7 % (0.0-10.0); Hemoglobin 10.7 g/dL (12.0-16.0); Mean Corpuscular HGB CONC 35.5 g/dL (32.0-36.0); Mean Corpuscular Hemoglobin 31.9 pg (27.0-31.0); Mean Corpuscular Volume 89.7 fL (78.0-98.0); Mean Platelet Volume 7.1 fL (7.4-10.4); Platelet Count 269 thou/uL (130-400); Red Blood Cell (RBC) Count 3.37 mill/uL (4.20-5.40); White Blood Cell (WBC) Count 9.1 thou/uL (4.8-10.8)
[2021-05-22 04:08] LABS: Anion Gap 10 mmol/L (10-20); BUN (Urea Nitrogen) 10 mg/dL (9.8-20.1); Calc. Creatinine Clearance 105 mL/min (70-130); Calcium 8.6 mg/dL (7.8-10.44); Carbon Dioxide 24 mmol/L (23-31); Chloride 96 mmol/L (98-107); Glucose 122 mg/dL (80-115); Magnesium 1.6 mg/dL (1.6-2.6); Potassium 4.2 mmol/L (3.5-5.1); Sodium 126 mmol/L (136-145)
[2021-05-22] MEDS: Sodium Chloride 0.9% 1,000 ML IV SCH (04:11)
[2021-05-22] MEDS ORDERED: Magnesium 2 GM/50 ML 2 GM in Premix Bag 1 BAG IVPB SCH ×2 (06:15→22:00)
[2021-05-22] MEDS: Famotidine 20 MG TAB PO SCH ×2 (10:14→20:05)
[2021-05-22] MEDS: Atorvastatin Calcium 20 MG TAB PO SCH (10:14)
[2021-05-22] MEDS: Enoxaparin Sodium 40 MG/0.4 ML SYRINGE SC SCH (10:14)
[2021-05-22] MEDS: Amlodipine 5 MG TAB PO SCH (10:15)
[2021-05-22] MEDS: OXcarbazepine 300 MG TAB PO SCH ×3 (10:15→20:09)
[2021-05-22] MEDS: Metoprolol Tartrate 50 MG TAB PO SCH ×2 (10:15→20:05)
[2021-05-22] MEDS ORDERED: Iopamidol-370 76% 500 ML 1 ML ONE (15:00)
[2021-05-22] MEDS ORDERED: Cyclobenzaprine 10 MG TAB PO PRN (19:40)
[2021-05-22] MEDS: cefTRIAXone\\ROCEPHIN 1 GM in Sodium Chloride 0.9% 100 ML IVPB SCH (20:05)
[2021-05-22] MEDS: Amitriptyline HCl 100 MG TAB PO SCH (20:05)
[2021-05-22] MEDS: Sodium Chloride 1 GM TAB PO SCH ×3 (20:06→20:26)
[2021-05-22 20:36] LABS: Anion Gap 9 mmol/L (10-20); BUN (Urea Nitrogen) 12 mg/dL (9.8-20.1); Calc. Creatinine Clearance 94 mL/min (70-130); Calcium 8.5 mg/dL (7.8-10.44); Carbon Dioxide 26 mmol/L (23-31); Chloride 96 mmol/L (98-107); Glucose 136 mg/dL (80-115); Magnesium 1.9 mg/dL (1.6-2.6); Potassium 3.7 mmol/L (3.5-5.1); Sodium 127 mmol/L (136-145)
[2021-05-22] MEDS ORDERED: Potassium Chloride 20 MEQ TAB PO SCH (20:45)
[2021-05-23 03:54] LABS: #Eosinphils 0.2 thou/uL (0.0-0.7); Hemoglobin 10.1 g/dL (12.0-16.0); RBC Distribution Width 12.2 % (11.5-14.5); White Blood Cell (WBC) Count 7.3 thou/uL (4.8-10.8)
[2021-05-23 04:08] LABS: #Lymphocytes 0.9 thou/uL (1.20-3.40); #Monocytes 0.7 thou/uL (0.11-0.59); #Neutrophils 5.5 thou/uL (1.40-6.50); %Basophils 0.5 % (0.0-1.0); %Eosinophils 2.6 % (0.0-10.0); %Lymphocytes 12.5 % (21.0-51.0); %Monocytes 9.8 % (0.0-10.0); %Neutrophils 74.7 % (42.0-75.0); Mean Corpuscular HGB CONC 34.8 g/dL (32.0-36.0); Mean Corpuscular Hemoglobin 31.3 pg (27.0-31.0); Mean Platelet Volume 7.1 fL (7.4-10.4); Platelet Count 263 thou/uL (130-400); Red Blood Cell (RBC) Count 3.22 mill/uL (4.20-5.40)
[2021-05-23 08:06] LABS: Albumin 3.1 g/dL (3.4-4.8); Anion Gap 9 mmol/L (10-20); BUN (Urea Nitrogen) 10 mg/dL (9.8-20.1); BUN/Creatinine Ratio 15.87; Calc. Creatinine Clearance 113 mL/min (70-130); Calcium 8.6 mg/dL (7.8-10.44); Carbon Dioxide 27 mmol/L (23-31); Chloride 98 mmol/L (98-107); Glucose 85 mg/dL (80-115); Magnesium 2.1 mg/dL (1.6-2.6); Phosphorus 3.2 mg/dL (2.3-4.7); Potassium 4.6 mmol/L (3.5-5.1); Sodium 129 mmol/L (136-145)
[2021-05-23] MEDS: Famotidine 20 MG TAB PO SCH ×2 (10:43→20:27)
[2021-05-23] MEDS: Amlodipine 5 MG TAB PO SCH ×2 (10:43→11:11)
[2021-05-23] MEDS: Enoxaparin Sodium 40 MG/0.4 ML SYRINGE SC SCH (11:10)
[2021-05-23] MEDS: Atorvastatin Calcium 20 MG TAB PO SCH (11:11)
[2021-05-23] MEDS: Sodium Chloride 1 GM TAB PO SCH ×3 (11:11→20:27)
[2021-05-23] MEDS: Metoprolol Tartrate 50 MG TAB PO SCH ×2 (11:11→20:27)
[2021-05-23] MEDS: OXcarbazepine 300 MG TAB PO SCH ×3 (11:12→20:28)
[2021-05-23] MEDS ORDERED: Buprenorphine 8mg/Naloxone 2mg per 1 FILM PO SCH (13:30)
[2021-05-23] MEDS: cefTRIAXone\\ROCEPHIN 1 GM in Sodium Chloride 0.9% 100 ML IVPB SCH (20:27)
[2021-05-24] MEDS: Amitriptyline HCl 100 MG TAB PO SCH (00:24)
[2021-05-24 05:00] LABS: #Eosinphils 0.2 thou/uL (0.0-0.7); #Lymphocytes 0.9 thou/uL (1.20-3.40); #Monocytes 0.6 thou/uL (0.11-0.59); #Neutrophils 3.7 thou/uL (1.40-6.50); %Basophils 0.5 % (0.0-1.0); %Eosinophils 3.6 % (0.0-10.0); %Lymphocytes 16.3 % (21.0-51.0); %Neutrophils 68.5 % (42.0-75.0); Hemoglobin 9.3 g/dL (12.0-16.0); Mean Corpuscular HGB CONC 33.9 g/dL (32.0-36.0); Mean Corpuscular Hemoglobin 30.7 pg (27.0-31.0); Mean Corpuscular Volume 90.4 fL (78.0-98.0); Mean Platelet Volume 6.6 fL (7.4-10.4); Platelet Count 252 thou/uL (130-400); RBC Distribution Width 12.2 % (11.5-14.5); Red Blood Cell (RBC) Count 3.03 mill/uL (4.20-5.40); White Blood Cell (WBC) Count 5.5 thou/uL (4.8-10.8)
[2021-05-24 05:21] LABS: Phosphorus 3.2 mg/dL (2.3-4.7)
[2021-05-24 05:25] LABS: ALT (SGPT) 40 U/L (8-55); AST (SGOT) 14 U/L (5-34); Albumin 3.1 g/dL (3.4-4.8); Alkaline Phosphatase 173 U/L (40-110); Anion Gap 9 mmol/L (10-20); BUN (Urea Nitrogen) 9 mg/dL (9.8-20.1); BUN/Creatinine Ratio 14.75; Bilirubin, Total 0.3 mg/dL (0.2-1.2); Calc. Creatinine Clearance 117 mL/min (70-130); Calcium 8.5 mg/dL (7.8-10.44); Carbon Dioxide 29 mmol/L (23-31); Chloride 96 mmol/L (98-107); Globulin 2.5 g/dL (2.4-3.5); Glucose 86 mg/dL (80-115); Magnesium 1.7 mg/dL (1.6-2.6); Phosphorus 3.3 mg/dL (2.3-4.7); Protein, Total 5.6 g/dL (5.8-8.1); Sodium 130 mmol/L (136-145)
[2021-05-24] MEDS ORDERED: Magnesium 2 GM/50 ML 2 GM in Premix Bag 1 BAG IVPB SCH (06:30)
[2021-05-24] MEDS: Atorvastatin Calcium 20 MG TAB PO SCH (09:21)
[2021-05-24] MEDS: OXcarbazepine 300 MG TAB PO SCH ×3 (09:21→20:36)
[2021-05-24] MEDS: Famotidine 20 MG TAB PO SCH ×2 (09:21→20:35)
[2021-05-24] MEDS: Sodium Chloride 1 GM TAB PO SCH ×3 (09:21→20:34)
[2021-05-24] MEDS: Enoxaparin Sodium 40 MG/0.4 ML SYRINGE SC SCH (09:21)
[2021-05-24] MEDS: Metoprolol Tartrate 50 MG TAB PO SCH ×2 (09:22→20:35)
[2021-05-24] MEDS: Amlodipine 5 MG TAB PO SCH (09:22)
[2021-05-24] MEDS ORDERED: Buprenorphine 8mg/Naloxone 2mg per 1 FILM PO SCH (12:00)
[2021-05-24] MEDS: Buprenorphine 8mg/Naloxone 2mg per 1 FILM PO SCH ×2 (16:36→20:36)
[2021-05-24] MEDS ORDERED: Amlodipine 5 MG TAB PO SCH (18:30)
[2021-05-24 19:30] VITALS: TEMP 98.2
[2021-05-24] MEDS: cefTRIAXone\\ROCEPHIN 1 GM in Sodium Chloride 0.9% 100 ML IVPB SCH (20:34)
[2021-05-25 04:42] LABS: Albumin 3.2 g/dL (3.4-4.8); Anion Gap 10 mmol/L (10-20); BUN (Urea Nitrogen) 8 mg/dL (9.8-20.1); Calc. Creatinine Clearance 103 mL/min (70-130); Calcium 8.8 mg/dL (7.8-10.44); Carbon Dioxide 32 mmol/L (23-31); Chloride 93 mmol/L (98-107); Glucose 96 mg/dL (80-115); Phosphorus 3.3 mg/dL (2.3-4.7); Potassium 3.7 mmol/L (3.5-5.1); Sodium 131 mmol/L (136-145)
[2021-05-25 07:46] VITALS: BP 147/73
[2021-05-25] MEDS: Metoprolol Tartrate 50 MG TAB PO SCH (09:08)
[2021-05-25] MEDS: Atorvastatin Calcium 20 MG TAB PO SCH (09:08)
[2021-05-25] MEDS: Sodium Chloride 1 GM TAB PO SCH ×2 (09:09→17:28)
[2021-05-25] MEDS: Enoxaparin Sodium 40 MG/0.4 ML SYRINGE SC SCH (09:09)
[2021-05-25] MEDS: Amlodipine 5 MG TAB PO SCH (09:09)
[2021-05-25] MEDS: Famotidine 20 MG TAB PO SCH (09:09)
[2021-05-25] MEDS: OXcarbazepine 300 MG TAB PO SCH ×2 (09:39→17:27)
[2021-05-25] MEDS ORDERED: Amlodipine 5 MG TAB PO SCH (10:00)
[2021-05-25] MEDS ORDERED: Potassium Chloride 20 MEQ TAB PO SCH (10:15)
[2021-05-26] MEDS ORDERED: Amlodipine 10 MG TAB PO SCH (09:00)
[2021-05-26] MEDS ORDERED: Amlodipine 5 MG TAB PO SCH (09:00)
[2021-05-26] MEDS ORDERED: Potassium Chloride 20 MEQ TAB PO SCH (09:00)
== END 2021-05-25 19:00 | DRG 643 ==
LOC: ERS 17:37 → SURG B 20:20 → CCU 05-22 02:20 → ONC 05-23 20:12
PROVIDERS: ADMIT Internal Medicine; ATTEND Family Medicine
PROC: 5A1935Z Respiratory Ventilation, Less than 24 Consecutive Hours (ICD-10-PCS; principal; 2021-05-22)
PROC: 0BH17EZ Insertion of Endotracheal Airway into Trachea, Via Natural or Artificial Opening (ICD-10-PCS; 2021-05-22)
DX: E22.2 Syndrome of inappropriate secretion of antidiuretic hormone (principal); G92 Toxic encephalopathy; J96.01 Acute respiratory failure with hypoxia; N39.0 Urinary tract infection, site not specified; G90.50 Complex regional pain syndrome I, unspecified; Z20.822 Contact with and (suspected) exposure to COVID-19; E78.5 Hyperlipidemia, unspecified; F31.9 Bipolar disorder, unspecified; I10 Essential (primary) hypertension; M47.812 Spondylosis without myelopathy or radiculopathy, cervical region; G89.4 Chronic pain syndrome; T50.7X5A Adverse effect of analeptics and opioid receptor antagonists, initial encounter; T40.425A Adverse effect of tramadol, initial encounter; E87.6 Hypokalemia; E83.42 Hypomagnesemia; R56.9 Unspecified convulsions; Z87.891 Personal history of nicotine dependence; Z78.1 Physical restraint status; Z98.890 Other specified postprocedural states; Z88.5 Allergy status to narcotic agent; Z88.8 Allergy status to other drugs, medicaments and biological substances; Z88.4 Allergy status to anesthetic agent; Z91.040 Latex allergy status; Z79.899 Other long term (current) drug therapy; Z98.1 Arthrodesis status; B96.20 Unspecified Escherichia coli [E. coli] as the cause of diseases classified elsewhere; B95.2 Enterococcus as the cause of diseases classified elsewhere
CPT/HCPCS: 36415; 36416; 36600; 70450; 70491; 70551; 71045; 80048; 80053; 80069; 81003; 81015; 82805; 83605; 83735; 83880; 83930; 83935; 84100; 84300; 84443; 84484; 85007; 85025; 85027; 87040; 87077; 87086; 87186; 93005; 93010; 94002; 95712; 95819; 95957; 96365; 96367; J0696; J1650; J2405; J3370; J3475; J3490; J7050; Q9967; U0003; U0005

== ENCOUNTER 2021-10-14 15:08 | Emergency (ER) | payer MEDICARE ==
[~2021-10-14 15:08] MED LIST: Iopamidol-370 76% 500 ML 1 ML ONE
[2021-10-14 15:33] LABS: #Eosinphils 0.1 thou/uL (0.0-0.7); #Lymphocytes 0.8 thou/uL (1.20-3.40); #Monocytes 0.6 thou/uL (0.11-0.59); #Neutrophils 4.9 thou/uL (1.40-6.50); %Basophils 0.6 % (0.0-1.0); %Eosinophils 1.6 % (0.0-10.0); %Lymphocytes 11.9 % (21.0-51.0); %Monocytes 9.7 % (0.0-10.0); %Neutrophils 76.2 % (42.0-75.0); Hemoglobin 11.5 g/dL (12.0-16.0); Mean Corpuscular HGB CONC 34.8 g/dL (32.0-36.0); Mean Corpuscular Hemoglobin 32.3 pg (27.0-31.0); Mean Corpuscular Volume 92.7 fL (78.0-98.0); Mean Platelet Volume 6.8 fL (7.4-10.4); Platelet Count 257 thou/uL (130-400); RBC Distribution Width 12.1 % (11.5-14.5); Red Blood Cell (RBC) Count 3.56 mill/uL (4.20-5.40); White Blood Cell (WBC) Count 6.4 thou/uL (4.8-10.8)
[2021-10-14 15:45] LABS: INR-International Normal Ratio 0.9; PTT 36.1 sec (22.9-36.1); Prothrombin Time 12.7 sec (12.0-14.7)
[2021-10-14 15:56] LABS: ALT (SGPT) 15 U/L (8-55); AST (SGOT) 15 U/L (5-34); Albumin 3.9 g/dL (3.4-4.8); Alkaline Phosphatase 176 U/L (40-110); Anion Gap 16 mmol/L (10-20); BUN (Urea Nitrogen) 21 mg/dL (9.8-20.1); Bilirubin, Total 0.4 mg/dL (0.2-1.2); CK (CPK) 33 U/L (29-168); Calc. Creatinine Clearance 0 mL/min (70-130); Calcium 9.4 mg/dL (7.8-10.44); Carbon Dioxide 24 mmol/L (23-31); Chloride 101 mmol/L (98-107); Globulin 3.1 g/dL (2.4-3.5); Glucose 98 mg/dL (80-115); Sodium 137 mmol/L (136-145)
[2021-10-14 16:21] LABS: Bacteria/HPF 3+ HPF (None Seen); Bilirubin Negative (Negative); Blood, Urine 1+ (Negative); Calcium Oxalate Crystals Rare HPF (None Seen); Clarity Clear (Clear); Glucose, Urine (Dipstick) Normal (Negative); Ketone, Urine Negative (Negative); Leukocyte 500 Leu/uL (Negative); Nitrite Negative (Negative); Protein, Urine (Dipstick) 10 mg/dL (Neg-Trace); Squamous Epithelial 0-3 HPF (0-3); Urobilinogen Normal mg/dL (Less than 2); WBC/HPF Greater than 50 HPF (0-3); pH, Urine 7.5 (5.0-9.0)
[2021-10-14 16:22] LABS: Specific Gravity, Urine 1.049 (1.002-1.036)
[2021-10-14 16:27] LABS: Amphetamine Not Detected (NotDetected); Barbiturates Screen Not Detected (NotDetected); Benzodiazepine Screen Not Detected (NotDetected); Cocaine Metabolite Screen Not Detected (NotDetected); Methadone Not Detected (NotDetected); Methamphetamine Not Detected (NotDetected); Opiate Screen Not Detected (NotDetected); Oxycodone Screen Not Detected (NotDetected); Phencyclidine (PCP) Not Detected (NotDetected); THC/Cannabinoid Screen Not Detected (NotDetected); Tricyclic Screen Not Detected (NotDetected)
[2021-10-14] MEDS ORDERED: cefTRIAXone\\ROCEPHIN 1 GM VIAL ONE (16:45)
[2021-10-14] MEDS ORDERED: Fentanyl 100 MCG/2 ML VIAL ONE (16:45)
== END 2021-10-14 19:23 | disposition home or self-care (01) ==
LOC: ERS 15:08
DX: N39.0 Urinary tract infection, site not specified (principal); T84.296A Other mechanical complication of internal fixation device of vertebrae, initial encounter; G89.4 Chronic pain syndrome; I10 Essential (primary) hypertension; E78.5 Hyperlipidemia, unspecified; Z87.891 Personal history of nicotine dependence
CPT/HCPCS: 36416; 70450; 70496; 70498; 71045; 80053; 80306; 81003; 81015; 82550; 84484; 85025; 85610; 85730; 93005; 94760; 96365; J0696; J3010; Q9967

== ENCOUNTER 2022-04-23 09:18 | Outpatient (CLI) | payer OTHER ==
[2022-04-23 11:06] LABS: Mean Corpuscular HGB CONC 36.1 g/dL (32.0-36.0); Mean Corpuscular Hemoglobin 31.5 pg (27.0-33.0); Mean Corpuscular Volume 87.4 fl (81.6-98.3); Mean Platelet Volume 9.8 fl (7.4-10.4); Platelet Count 236 10x3/uL (150-450); RBC Distribution Width 11.9 % (11.5-14.5); Red Blood Cell (RBC) Count 3.49 10x6/uL (3.90-5.03); White Blood Cell (WBC) Count 4.7 10x3/uL (3.5-10.5)
[2022-04-23 11:28] LABS: Anion Gap 14 mmol/L (10-20); BUN (Urea Nitrogen) 18 mg/dL (9.8-20.1); Calc. Creatinine Clearance 0 mL/min (70-130); Carbon Dioxide 26 mmol/L (23-31); Chloride 91 mmol/L (98-107); Estimated GFR 93; Glucose 83 mg/dL (80-115); Potassium 4.4 mmol/L (3.5-5.1); Sodium 127 mmol/L (136-145)
== END 2022-04-23 09:19 | disposition home or self-care (01) ==
LOC: LABBT 09:18
PROVIDERS: ATTEND Specialist
DX: Z01.818 Encounter for other preprocedural examination (principal); Z20.822 Contact with and (suspected) exposure to COVID-19
CPT/HCPCS: 80048; 85027; 87811; 93005; 93010

== ENCOUNTER 2022-04-26 07:59 | Day surgery (SDC) | payer MEDICARE ==
[2022-04-23 14:31] VITALS: BMI 25.4
[2022-04-26] MEDS ORDERED: Bupivacaine/Epinephrine 0.25% 30 ML VIAL ONE ×2 (11:26→11:27)
[2022-04-26] MEDS ORDERED: fentaNYL Citrate/PF 100 MCG/2 ML SYRINGE ONE (12:17)
[2022-04-26] MEDS ORDERED: Dexamethasone 20 MG/5 ML VIAL ONE (12:37)
[2022-04-26] MEDS ORDERED: Ondansetron PF 4 MG/2 ML Vial ONE (12:37)
[2022-04-26] MEDS ORDERED: PROPOFOL 200 MG/20 ML VIAL ONE (12:37)
[2022-04-26] MEDS ORDERED: Rocuronium Bromide 10 MG/ML (10ML VIAL) ONE (12:37)
[2022-04-26] MEDS ORDERED: Succinylcholine 200 MG/10 ml SYRINGE FS ONE (12:37)
[2022-04-26] MEDS ORDERED: ePHEDrine 50 MG/ML VIAL ONE (12:37)
[2022-04-26] MEDS ORDERED: Lidocaine 1% PF 5 ML VIAL ONE (12:37)
[2022-04-26] MEDS ORDERED: SUGAMMADEX SODIUM 200 MG/2 ML VIAL ONE (13:49)
[2022-04-26] MEDS ORDERED: Fentanyl 100 MCG/2 ML VIAL ONE (14:42)
== END 2022-04-26 16:50 | disposition home or self-care (01) ==
LOC: SDC 07:59
PROVIDERS: ATTEND Specialist
PROC: 0JH70DZ Insertion of Multiple Array Stimulator Generator into Back Subcutaneous Tissue and Fascia, Open Approach (ICD-10-PCS; principal; 2022-04-26)
PROC: 00HU3MZ Insertion of Neurostimulator Lead into Spinal Canal, Percutaneous Approach (ICD-10-PCS; 2022-04-26)
DX: G90.529 Complex regional pain syndrome I of unspecified lower limb (principal); G89.4 Chronic pain syndrome; Z79.899 Other long term (current) drug therapy; Z88.5 Allergy status to narcotic agent; Z91.040 Latex allergy status
CPT/HCPCS: 72020; 76000; C1713; C1778; J1100; J2405; J2704; J3010; J3490